=== PATIENT | female | born 1955 | race Caucasian/White ===

== ENCOUNTER → 2016-12-29 | Outpatient (CLI) | payer OTHER ==
[~2016-12-29] MED LIST: ASPIRIN 81M81 MG/TA2 PO; CAL-CITRATE PLU1 TAB PO; COQ10150 MG PO; D3PLUS1 CAP PO; DUO-KAPS1 CAP PO; FISH OIL SUPER1 SGL PO; LEVOXYL0.05 MG PO; NORCO 325 MG-51 TAB PO; PRILOSEC 20MG20 MG PO; PROBIOTIC FORMU1 CAP PO; PROMETHAZINE V473 M2 PO; TAMIFLU 75MG75 MG PO; TESSALON P100 MG/CAP PO
== END ==
LOC: MC.RAD 07:00
DX: Z12.31 Encounter for screening mammogram for malignant neoplasm of breast (principal)

== ENCOUNTER → 2018-01-01 | Outpatient (CLI) | payer BC | LOC: MC.RAD 14:55 | DX: Z12.31 Encounter for screening mammogram for malignant neoplasm of breast (principal) ==

== ENCOUNTER → 2018-09-18 | Outpatient (CLI) | payer BC | LOC: MC.RAD 12:49 | DX: R92.2 Inconclusive mammogram (principal) | CPT/HCPCS: G0279 ==

== ENCOUNTER → 2019-11-15 | Outpatient (CLI) | payer BC | LOC: MC.RAD 08:45 | DX: Z12.31 Encounter for screening mammogram for malignant neoplasm of breast (principal) ==

== ENCOUNTER → 2020-11-16 | Outpatient (CLI) | payer MEDICARE | LOC: MC.RAD 08:01 | DX: Z12.31 Encounter for screening mammogram for malignant neoplasm of breast (principal); N64.89 Other specified disorders of breast ==

== ENCOUNTER → 2020-11-23 | Outpatient (CLI) | payer MEDICARE | LOC: MC.RAD 09:48 | DX: N64.59 Other signs and symptoms in breast (principal) ==

== ENCOUNTER → 2021-05-24 | Outpatient (CLI) | payer MEDICARE | LOC: MC.RAD 07:00 | DX: R92.8 Other abnormal and inconclusive findings on diagnostic imaging of breast (principal) ==

== ENCOUNTER 2021-06-09 07:58 | Day surgery (SDC) | payer MEDICARE ==
[~2021-06-09] VITALS: Ht 160 cm; Wt 78.0 kg
[2021-06-09] MEDS ORDERED: FOSAMAX 70MG TA70 MG PO (08:41)
[2021-06-09] MEDS ORDERED: LUTEIN 15 MG-0.1 SGL PO (08:47)
[2021-06-09 08:58] VITALS: BP 122/51; PULSE 99; TEMP 98.5
[2021-06-09 10:45] VITALS: BP 80/42; PULSE 49; TEMP 97.6
--- NOTE | 2021-06-09 10:45 | NUR ---
RECEIVED PT PER CART TO [facility]. RECEIVED REPORT FROM ASSISTANT FINANCE DIRECTOR AND TRAFFIC WORKFORCE REPRESENTATIVE. VS OBTAINED. PT SLEEPY, BUT AWAKES WHEN SPOKEN TO. PT DENIES ANY NEEDS AT THIS TIME. WILL CONTINUE TO MONITOR PT. AT BEDSIDE.
[2021-06-09 11:00] VITALS: BP 110/54; PULSE 42
--- NOTE | 2021-06-09 11:00 | NUR ---
PT RESTING COMFORTABLY. DENIES ANY NEEDS AT THIS TIME. WILL CONTINUE TO MONITOR. PT'S REMAINS AT BEDSIDE.
[2021-06-09 11:15] VITALS: BP 104/49; PULSE 48
--- NOTE | 2021-06-09 11:15 | NUR ---
PT CONTINUES TO REST COMFORTABLY. DENIES ANY NEEDS.
[2021-06-09 11:30] VITALS: BP 110/54; PULSE 46
--- NOTE | 2021-06-09 11:30 | NUR ---
PT TOLERATING PO WITHOUT DIFFICULTY, WATER AND TOAST. PT RESTING COMFORTABLY AND DENIES ANY PAIN AT THIS TIME. WILL CONTINUE TO MONITOR PT.
[2021-06-09 12:00] VITALS: BP 126/53; PULSE 53
--- NOTE | 2021-06-09 12:00 | NUR ---
VS REMAIN STABLE. PT STATES SHE IS READY FOR DISCHARGE.
--- NOTE | 2021-06-09 12:25 | NUR ---
DISCHARGE EDUCATION COMPLETED WITH PT AND HER . PT VERBALIZED UNDERSTANDING OF HOME AND FOLLOW UP CARE. ALL QUESTIONS ANSWERED. DISCHARGE PAPERWORK GIVEN TO PT.
--- NOTE | 2021-06-09 12:35 | NUR ---
PT OFF UNIT PER WHEELCHAIR. DISCHARGE TO HOME WITH PER PERSONAL VEHICLE.
== END 2021-06-09 12:35 | disposition home or self-care (01) ==
LOC: SDCO 07:58
DX: M20.11 Hallux valgus (acquired), right foot (principal); M20.21 Hallux rigidus, right foot; K29.70 Gastritis, unspecified, without bleeding; M81.0 Age-related osteoporosis without current pathological fracture; D68.4 Acquired coagulation factor deficiency; K76.89 Other specified diseases of liver; Z87.19 Personal history of other diseases of the digestive system; Z79.899 Other long term (current) drug therapy
CPT/HCPCS: J0690; J1885; J2405; J2704; J3010; J7120

== ENCOUNTER → 2021-11-18 | Outpatient (CLI) | payer MEDICARE ==
[~2021-11-18] MED LIST changes: +FOSAMAX 70MG TA70 MG PO; +LUTEIN 15 MG-0.1 SGL PO
== END ==
LOC: MC.RAD 07:27
DX: Z12.31 Encounter for screening mammogram for malignant neoplasm of breast (principal)